=== PATIENT | male | born 1965 | race American Indian/Alaskan Native ===

== ENCOUNTER 2016-08-08 15:01 | Emergency (ER) | payer SELFPAY ==
--- NOTE | 2016-08-08 15:29 | Emergency Department Report ---
Chief Complaint: Nosebleed Stated Complaint: HBP Time Seen by Provider: 08/08/16 15:18 - HPI History of Present Illness: 51-year-old male presents today with multiple episodes of bleeds. Patient stated he had one episode 2 days ago and 2 episodes today. Positive for history of elevated blood pressure levels but states he has had controlled with diet. Denies any other medical complaints. Denies nausea, vomiting, chest pain , shortness of breath, abdominal pain. Patient states he is also taking over- the-counter workout supplements that might be associated to his elevated blood pressure levels. - ROS Review of Systems: Per HPI - Exam Vital Signs: Vital Signs 08/08/16 15:08 Temperature 98.6 F Pulse Rate 81 Respiratory 18 Rate Blood Pressure 173/113 O2 Sat by Pulse 100 Oximetry Physical Exam: General: 51-year-old male in no acute distress. Well-developed, well-nourished. CV: Regular rate and rhythm. Lungs: Clear to auscultation bilaterally. MSE screening note: Focused history and physical exam performed. Due to findings the following was ordered: ED Disposition for MSE Condition: Stable
[2016-08-08] MEDS ORDERED: CATAPRES PO ONE (15:37)
[2016-08-08 15:44] LABS: Basophils % (Auto) 0.9 % (0.0-1.8); Hematocrit 43.7 % (35.5-45.6); Hemoglobin 14.4 gm/dl (11.8-15.2); Mean Corpuscular HGB Conc 33 % (32-34); Mean Corpuscular Hemoglobin 29 pg (28-32); Mean Corpuscular Volume 89 fl (84-94); Platelet Count 174 K/mm3 (140-440); Red Blood Count 4.92 M/mm3 (3.65-5.03); Red Cell Distribution Width 14.1 % (13.2-15.2); White Blood Count 5.9 K/mm3 (4.5-11.0)
[2016-08-08 15:53] LABS: INR 1.13 (0.87-1.13)
[2016-08-08 15:54] LABS: Partial Thromboplastin Time 32.6 Sec. (24.2-36.6)
[2016-08-08 15:58] LABS: Anion Gap 17 mmol/L; BUN/Creatinine Ratio 14.61; Blood Urea Nitrogen 19 mg/dL (9-20); Calcium 8.5 mg/dL (8.4-10.2); Carbon Dioxide 26 mmol/L (22-30); Chloride 96.1 mmol/L (98-107); Glucose 117 mg/dL (75-100); Potassium 3.8 mmol/L (3.6-5.0); Sodium 135 mmol/L (137-145)
[2016-08-08] MEDS ORDERED: NORVASC PO ONE (21:46)
--- NOTE | 2016-08-08 21:52 | Emergency Department Report ---
HPI - General Chief Complaint: Nosebleed Time Seen by Provider: 08/08/16 15:18 - HPI HPI: Room 2 The patient is a 51-year-old male presenting with a chief complaint of epistaxis. The patient states his symptoms began 2 nights ago while at a show the patient states he started [place] he developed epistaxis from his right naris. The patient states. After several minutes of ice being applied. The patient states the following day (yesterday) did not have any difficulties. The patient states this morning at approximately 06:00 while yelling at his dog he again began bleeding from his right naris. The patient applied ice and the bleeding stopped after 10 minutes. The patient states he went to work wall being upset again his nose began to bleed. The patient stated he had a history of hypertension the past was placed on medication but stopped taking it after the medication ran out. Location: Nose Duration: Intermittent 2 days Quality: Painless Severity: Moderate Modifying factors: [see above] Context: [see above] Mode of transportation: Unknown ED Past Medical Hx - Past Medical History Hx Hypertension: Yes - Surgical History Additional Surgical History: Ankle surgery - Family History Family history: no significant - Social History Smoking Status: Former Smoker Substance Use Type: None, Marijuana (none since February 2016) - Medications Home Medications: Home Medications Medication Instructions Recorded Confirmed Last Taken Type amLODIPine [Norvasc] 5 mg PO DAILY #90 tab 08/08/16 Unknown Rx ED Review of Systems ROS: Stated complaint: HBP Other details as noted in HPI Comment: All other systems reviewed and negative Constitutional: denies: chills, fever Eyes: denies: eye pain, eye discharge, vision change ENT: epistaxis Respiratory: denies: cough, shortness of breath, wheezing Cardiovascular: denies: chest pain, palpitations Endocrine: no symptoms reported Gastrointestinal: denies: abdominal pain, nausea, diarrhea Genitourinary: denies: urgency, dysuria Musculoskeletal: denies: back pain, joint swelling, arthralgia Skin: denies: rash, lesions Neurological: denies: headache, weakness, paresthesias Psychiatric: denies: anxiety, depression Hematological/Lymphatic: denies: easy bleeding, easy bruising Physical Exam - Physical Exam Vital Signs: Vital Signs 08/08/16 08/08/16 08/08/16 15:08 16:09 17:16 Temperature 98.6 F Pulse Rate 81 68 Respiratory 18 20 18 Rate Blood Pressure 173/113 157/114 178/119 Blood Pressure 178/119 [Left] O2 Sat by Pulse 100 100 Oximetry 08/08/16 08/08/16 19:05 20:21 Temperature Pulse Rate 56 L 62 Respiratory 18 20 Rate Blood Pressure Blood Pressure 155/109 172/97 [Left] O2 Sat by Pulse 100 100 Oximetry Physical Exam: GENERAL: The patient is well-developed well-nourished male sitting on stretcher not appearing to be in acute distress. [] HEENT: Normocephalic. Atraumatic. Extraocular motions are intact. Patient has moist mucous membranes. Dry blood in bilateral nares. No active bleeding seen NECK: Supple. Trachea midline CHEST/LUNGS: Clear to auscultation. There is no respiratory distress noted. HEART/CARDIOVASCULAR: Regular. There is no tachycardia. There is no gallop rub or murmur. ABDOMEN: Abdomen is soft. Patient has normal bowel sounds. There is no abdominal distention. SKIN: There is no rash. There is no edema. There is no diaphoresis. NEURO: The patient is awake, alert, and oriented. The patient is cooperative. The patient has normal speech and gait. MUSCULOSKELETAL: There is no evidence of acute injury. ED Course Vital Signs 08/08/16 08/08/16 08/08/16 15:08 16:09 17:16 Temperature 98.6 F Pulse Rate 81 68 Respiratory 18 20 18 Rate Blood Pressure 173/113 157/114 178/119 Blood Pressure 178/119 [Left] O2 Sat by Pulse 100 100 Oximetry 08/08/16 08/08/16 19:05 20:21 Temperature Pulse Rate 56 L 62 Respiratory 18 20 Rate Blood Pressure Blood Pressure 155/109 172/97 [Left] O2 Sat by Pulse 100 100 Oximetry ED Medical Decision Making - Lab Data Result diagrams: 08/08/16 15:31 08/08/16 15:31 Laboratory Tests 08/08/16 08/08/16 08/08/16 15:31 15:31 15:31 WBC 5.9 RBC 4.92 Hgb 14.4 Hct 43.7 MCV 89 MCH 29 MCHC 33 RDW 14.1 Plt Count 174 Lymph % (Auto) 32.0 [place] % (Auto) 5.9 Eos % (Auto) 1.0 Baso % (Auto) 0.9 Lymph # 1.9 [place] # 0.3 Eos # 0.1 Baso # 0.1 Seg Neutrophils % 60.2 Seg Neutrophils # 3.6 PT 14.4 INR 1.13 APTT 32.6 Sodium 135 L Potassium 3.8 Chloride 96.1 L Carbon Dioxide 26 Anion Gap 17 BUN 19 Creatinine 1.3 Estimated GFR > 60 BUN/Creatinine Ratio 14.61 Glucose 117 H Calcium 8.5 - Differential Diagnosis hypertension, epistaxis Critical care attestation.: If time is entered above; I have spent that time in minutes in the direct care of this critically ill patient, excluding procedure time. ED Disposition Clinical Impression: Epistaxis, Hypertension Disposition: DISCHARGED TO HOME OR SELFCARE Is pt being admited?: No Does the pt Need Aspirin: No Condition: Stable Instructions: Hypertension (ED), Epistaxis (ED) Additional Instructions: Return to the emergency department immediately should you develop worsening symptoms, fever, inability to tolerate food or liquid or any other concerns. Prescriptions: amLODIPine [Norvasc] 5 mg PO DAILY #90 tab Referrals: [facility] [Outside] - 3-5 Days ANA MARTI MD [Staff Physician] - 3-5 Days (Dr. Marti is a primary physician. Please follow up with her for further evaluation) Time of Disposition: 21:49
[2016-08-08 21:59] VITALS: BP 158/91
== END 2016-08-08 21:59 | disposition home or self-care (01) ==
LOC: ED 15:01
DX: R04.0 Epistaxis (principal); I10 Essential (primary) hypertension; F12.10 Cannabis abuse, uncomplicated; Z87.891 Personal history of nicotine dependence; Z98.890 Other specified postprocedural states; Z79.899 Other long term (current) drug therapy
CPT/HCPCS: 36415; 80048; 85025; 85610; 85730; 99283

== ENCOUNTER 2016-08-09 20:44 | Emergency (ER) | payer SELFPAY ==
[2016-08-09 21:48] LABS: Basophils % (Auto) 0.6 % (0.0-1.8); Eosinophils % (Auto) 1.2 % (0.0-4.3); Hematocrit 42.9 % (35.5-45.6); Hemoglobin 14.2 gm/dl (11.8-15.2); Mean Corpuscular HGB Conc 33 % (32-34); Mean Corpuscular Hemoglobin 29 pg (28-32); Mean Corpuscular Volume 88 fl (84-94); Platelet Count 179 K/mm3 (140-440); Red Blood Count 4.87 M/mm3 (3.65-5.03); Red Cell Distribution Width 14.1 % (13.2-15.2); White Blood Count 8.5 K/mm3 (4.5-11.0)
[2016-08-09 21:53] LABS: Anion Gap 18 mmol/L; BUN/Creatinine Ratio 16.42; Blood Urea Nitrogen 23 mg/dL (9-20); Calcium 8.6 mg/dL (8.4-10.2); Carbon Dioxide 26 mmol/L (22-30); Glucose 103 mg/dL (75-100); Sodium 139 mmol/L (137-145)
[2016-08-10 00:14] VITALS: BP 138/92
--- NOTE | 2016-08-12 18:48 | ED Elopement Review ---
ED Pt Elopement review - Results review Lab results: Laboratory Tests 08/09/16 08/09/16 08/09/16 21:19 21:19 21:19 WBC 8.5 RBC 4.87 Hgb 14.2 Hct 42.9 MCV 88 MCH 29 MCHC 33 RDW 14.1 Plt Count 179 Lymph % (Auto) 36.1 H [place] % (Auto) 5.7 Eos % (Auto) 1.2 Baso % (Auto) 0.6 Lymph # 3.1 [place] # 0.5 Eos # 0.1 Baso # 0.1 Seg Neutrophils % 56.4 Seg Neutrophils # 4.8 Sodium 139 Potassium 4.0 Chloride 99.0 Carbon Dioxide 26 Anion Gap 18 BUN 23 H Creatinine 1.4 Estimated GFR > 60 BUN/Creatinine Ratio 16.42 Glucose 103 H Calcium 8.6 Blood Type O POSITIVE Antibody Screen Negative - Call Back decision Pt Call Back Decision: Pt to F/U with PMD
== END 2016-08-10 02:30 | disposition left against medical advice (07) ==
LOC: ED 20:44
DX: R04.0 Epistaxis (principal); Z72.0 Tobacco use; Z53.21 Procedure and treatment not carried out due to patient leaving prior to being seen by health care provider
CPT/HCPCS: 36415; 80048; 85025; 86850; 86900; 86901